=== PATIENT | male | born 1990 | race African-American/Black ===

== ENCOUNTER 2018-05-28 13:50 | Emergency (ER) | payer MEDICARE, MEDICAID ==
[~2018-05-28 13:50] MED LIST: NO HOME MEDS; PANT-47 PO
[2018-05-28 14:44] VITALS: BP 125/82
[2018-05-28] MEDS ORDERED: CHLO473M3 PO (15:02)
[2018-05-28] MEDS ORDERED: CLIN300C85 PO (15:02)
--- NOTE | 2018-05-28 15:26 | NUR ---
Patient seen and assessed by provider.
== END 2018-05-28 15:27 | disposition home or self-care (01) ==
LOC: ER 13:50
DX: K08.89 Other specified disorders of teeth and supporting structures (principal); Z90.49 Acquired absence of other specified parts of digestive tract; Z56.0 Unemployment, unspecified; Z88.0 Allergy status to penicillin; Z88.8 Allergy status to other drugs, medicaments and biological substances
CPT/HCPCS: 99283

== ENCOUNTER 2021-08-19 02:23 | Emergency (ER) | payer MEDICARE, MEDICAID ==
[~2021-08-19] VITALS: Ht 175.3 cm; Wt 100.2 kg
[~2021-08-19 02:23] MED LIST changes: +CHLO473M3 PO; +CLIN-97 PO
[2021-08-19] MEDS ORDERED: acetaminophen 325mg tablet PO ONE (02:40)
[2021-08-19] MEDS ORDERED: bacitracin 15gm ointment TP ONE (04:10)
[2021-08-19] MEDS ORDERED: TETanus/Pertussis (Acell)/Diphther VAC/PF (Tdap-Adult) 0.5ml syringe IMVAC ONE (04:10)
[2021-08-19 05:46] VITALS: BP 107/77
== END 2021-08-19 05:50 | disposition home or self-care (01) ==
LOC: ER 02:23
DX: S49.92XA Unspecified injury of left shoulder and upper arm, initial encounter (principal); S40.012A Contusion of left shoulder, initial encounter; S40.212A Abrasion of left shoulder, initial encounter; M25.512 Pain in left shoulder; F31.9 Bipolar disorder, unspecified; F20.9 Schizophrenia, unspecified; Z86.14 Personal history of Methicillin resistant Staphylococcus aureus infection; Z90.89 Acquired absence of other organs; Z88.0 Allergy status to penicillin; Z88.8 Allergy status to other drugs, medicaments and biological substances; Z20.3 Contact with and (suspected) exposure to rabies; Z79.2 Long term (current) use of antibiotics; Z79.899 Other long term (current) drug therapy; X58.XXXA Exposure to other specified factors, initial encounter; Y93.89 Activity, other specified; Y92.89 Other specified places as the place of occurrence of the external cause; Y99.8 Other external cause status
CPT/HCPCS: 29105; 36415; 73030; 86592; 87491; 90471; 90715; 99284

== ENCOUNTER 2022-04-18 05:29 | Emergency (ER) | payer MEDICAID, MEDICARE ==
[~2022-04-18] VITALS: Ht 175.3 cm; Wt 113.6 kg
[2022-04-18 05:48] VITALS: BP 117/82
== END 2022-04-18 11:55 | disposition left against medical advice (07) ==
LOC: ER 05:30
DX: R10.9 Unspecified abdominal pain (principal); Z53.21 Procedure and treatment not carried out due to patient leaving prior to being seen by health care provider

== ENCOUNTER 2023-12-05 00:23 | Emergency (ER) | payer MEDICAID, OTHER ==
[~2023-12-05] VITALS: Ht 175.3 cm; Wt 102.3 kg
[~2023-12-05 00:23] MED LIST changes: +CHLO473M13 PO; -CHLO473M3 PO
[2023-12-05 00:41] VITALS: BP 134/86; PULSE 65; RESP 14; TEMP 97.9; O2SAT 100
== END 2023-12-05 03:49 | disposition home or self-care (01) ==
LOC: ER 00:27
DX: M79.671 Pain in right foot (principal); M25.571 Pain in right ankle and joints of right foot; F31.9 Bipolar disorder, unspecified; F20.9 Schizophrenia, unspecified; Z88.0 Allergy status to penicillin; Z88.8 Allergy status to other drugs, medicaments and biological substances; Z79.2 Long term (current) use of antibiotics; Z79.899 Other long term (current) drug therapy; Z90.49 Acquired absence of other specified parts of digestive tract
CPT/HCPCS: 73610; 73630; 99284; A6449

== ENCOUNTER 2024-02-03 21:01 | Emergency (ER) | payer MEDICAID, OTHER ==
[~2024-02-03] VITALS: Ht 175.3 cm; Wt 101.4 kg
[2024-02-03 21:30] VITALS: TEMP 99.2
[2024-02-03 22:26] VITALS: BP 133/78; PULSE 88; O2SAT 98
[2024-02-03 22:38] VITALS: RESP 17
[2024-02-03] MEDS: ketorolac trometh 30MG/ML vial 30 MG/ML VIAL IM ONE (22:38)
== END 2024-02-03 22:44 | disposition home or self-care (01) ==
LOC: ER 21:02
DX: B34.9 Viral infection, unspecified (principal); F31.9 Bipolar disorder, unspecified; F20.9 Schizophrenia, unspecified; Z88.8 Allergy status to other drugs, medicaments and biological substances; Z88.0 Allergy status to penicillin; Z79.899 Other long term (current) drug therapy; Z79.2 Long term (current) use of antibiotics; Z90.49 Acquired absence of other specified parts of digestive tract; Z20.822 Contact with and (suspected) exposure to COVID-19
CPT/HCPCS: 36415; 87811; 96372; 99283; J1885

== ENCOUNTER 2024-04-30 05:30 | Emergency (ER) | payer MEDICAID ==
[~2024-04-30] VITALS: Ht 175.3 cm; Wt 96.7 kg
[2024-04-30 06:10] VITALS: TEMP 97.8
[2024-04-30 06:59] VITALS: BP 144/76; PULSE 74; RESP 16; O2SAT 97
== END 2024-04-30 07:02 | disposition home or self-care (01) ==
LOC: ER 05:30
DX: S93.492A Sprain of other ligament of left ankle, initial encounter (principal); M25.572 Pain in left ankle and joints of left foot; Z88.0 Allergy status to penicillin; Z88.8 Allergy status to other drugs, medicaments and biological substances; Z79.899 Other long term (current) drug therapy; F31.9 Bipolar disorder, unspecified; F20.9 Schizophrenia, unspecified; Z90.49 Acquired absence of other specified parts of digestive tract; X50.1XXA Overexertion from prolonged static or awkward postures, initial encounter; Y93.89 Activity, other specified; Y92.89 Other specified places as the place of occurrence of the external cause; Y99.0 Civilian activity done for income or pay
CPT/HCPCS: 73610; 99283

== ENCOUNTER 2024-11-21 14:08 | Emergency (ER) | payer MEDICAID ==
[~2024-11-21] VITALS: Ht 175.3 cm; Wt 100.7 kg
[2024-11-21 14:10] VITALS: BP 159/84; PULSE 78; RESP 18; TEMP 97.9; O2SAT 100
--- NOTE | 2024-11-21 16:18 | Physician Documentation ---
History of Present Illness ~ Chief Complaint: Bite-animal Stated Complaint: DOG BITE Time Seen by MD: 15:20 OK to notify your PCP?: Yes Primary Medical Doctor: NONE Source: patient Mode of Arrival: POV Exam Limitations: no limitations HPI This is a 34-year-old male who comes in for a dog bite to his left inner ankle. He states this happened the walking on the street just prior to arrival. It is so straight dog ran up and bit him on his left ankle. Bleeding stopped prior to arrival spontaneously. He is not complaining of any significant pain. Last Tdap is unknown. Tetanus within 5 years?: Yes Medication Reconciliation Allergies: Coded Allergies: Marijuana/Cannabinoid (Verified Allergy, Unknown, 11/21/24) Penicillins (Verified Allergy, Unknown, 11/21/24) methylphenidate HCl (Verified Allergy, Unknown, 11/21/24) quetiapine fumarate (Verified Allergy, Unknown, 11/21/24) oxcarbazepine (Unverified Adverse Reaction, Unknown, 11/21/24) DYSTONIC REACTION risperidone (Unverified Adverse Reaction, Unknown, 11/21/24) DYSTONIC REACTION Uncoded Allergies: ALL PSYCH MEDS (Allergy, Unknown, 06/24/14) Scheduled Chlorhexidine Gluconate (Periogard), 15 ML PO Q12H Clindamycin HCL* (Clindamycin HCL*), 1 CAP PO TID Doxycycline Hyclate (Doxycycline Hyclate), 1 CAP PO Q12H Pantoprazole Sodium (PROTONIX tablet), 40 MG PO DAILY Miscellaneous Medications Home Med List (No Home Medications), (Reported) Past Medical History Past Medical History: Bronchitis, MRSA Abscess, Bipolar, Schizophrenia Past Surgical History: appendectomy Alcohol Use: None Drug Use: none Lives with: Other Lives In: Home, Other Occupation: employed Physical Exam Vital Signs: Temperature: 97.9, Heart Rate: 78, Respiratory Rate: 18, BP: 159/84, Pulse Oximetry: 100, Weight: 100.650 Oxygen Flow Rate: 0 Pulse Oximetry Reflects: adequate oxygenation General Appearance: alert, WD/WN, no apparent distress Extremities To inspection of the left lower inner extremity the patient has a 2 cm gash ever in his horizontally. It is down to the cutaneous tissue. No active he morrhaging. No obvious underlying structural injury. No range of motion deficits of the left ankle and foot with dorsiflexion, plantar flexion, inversion, eversion. Left dorsalis pedis pulses 2+ and cap refill less than 2 seconds and brisk in the digits of the left foot. Procedures Laceration/Wound Repair Laceration/Wound Repair : Anesthesia: Lidocaine Prep: betadine, irrigated by physician Irrigated w/ Saline (mls): 500 Repaired: skin Wound Repaired With: sutures Suture Size/Type: 4-0, nylon Number of Superficial Sutures: 2 Dressing Applied: gauze, non-adherent Splint Applied?: No Tolerated Procedure Well?: yes, no complications Procedure Note The wound was anesthetized locally with 1% lidocaine without epinephrine and explored to the base in a bloodless field. There was no significant underlying structural injury. I then irrigated with a copious amount of a mixture of normal saline and Betadine the area of the night performed a very loose closure with the just 2 4-0 nylon simple interrupted sutures. I then covered with a nonadherent sterile gauze dressing. The patient tolerated the procedure well. Progress Results/Orders Reviewed/noted all lab results: Yes Results/Orders Completed Orders - NILSON BURROUGHS Lidocaine 1% W/Preservative (Lidocaine 1 (11/21/24 16:10) Tetanus/Pertuss/Diph Acell/Pf (Boostrix (11/21/24 16:10) Doxycycline 100mg Capsule (Vibramycin 10 (11/21/24 16:08) Medications Received in ER Medications (Trade) Dose Ordered Sig/Umair Route PRN Reason Start Time Stop Time Status Last Admin Dose Admin (Boostrix vaccine syringe) 0.5 ml ONCE ONCE IMVAC 11/21/24 16:10 11/21/24 16:11 DC 11/21/24 16:27 0.5 ML (VIBRAMYCIN 100mg capsule) 100 mg ONCE STAT PO 11/21/24 16:08 11/21/24 16:10 DC 11/21/24 16:26 100 MG Vital Signs 11/21/24 14:10 Temp 97.9 Pulse 78 Resp 18 B/P (MAP) 159/84 Pulse Ox 100 O2 Flow Rate 0 Medical Decision Making Findings The dog bite has a deep gash that has about 2 cm in length. It will require some closure soap the wound was anesthetized locally, irrigated with a copious amount of normal saline and Betadine and closed loosely with 4-0 nylon sutures. He was then wrapped and nonadherent sterile gauze dressing. The patient's Tdap was updated in his given a one doxycycline 100 mg p.o.. We will continue with the doxycycline twice a day for 10 days and instructed him to keep the current dressing clean dry and do not remove it for two days. After two days I suggest ed a wound check with the primary care physician. Elevate the leg frequently take ibuprofen or Tylenol for pain. Return to the ER sooner for increased redness, swelling, pain, purulent discharge or any concerns Additional Comment Dog bite left lower extremity. Departure Disposition: HOME / SELF CARE / HOMELESS Impression: Primary Impression: Dog bite of left ankle Condition: Stable Discharge Instructions: Animal Bite, Adult Additional Instructions: The current dressing clean dry and do not remove it. Elevate the ankle frequently to reduce pain and swelling. Take ibuprofen or Tylenol for pain. Keep the current dressing on for two days and get a wound check in two days. Suture removal in 10 days. Return sooner for any worsening or concerning symptoms Referrals: NO PRIMARY CARE PROVIDER (PCP) Prescriptions Doxycycline Hyclate (Doxycycline Hyclate) 100 Mg Capsule 1 CAP PO Q12H for 10 Days, #20 CAP Prov: NILSON BURROUGHS 11/21/24 Signature Scribe Signature: No scribe Attestation: The note accurately reflects work and decisions made by me.Nilson FRANCIS 11/21/24 16:52 NILSON BURROUGHS Nov 21, 2024 16:18
[2024-11-21] MEDS ORDERED: DOXY-1 PO (16:20)
[2024-11-21] MEDS: DOXYCYCLINE 100MG CAPSULE PO STA (16:26)
[2024-11-21] MEDS: TETanus/Pertussis (Acell)/Diphther VAC/PF (Tdap-Adult) 0.5ml syringe IMVAC ONE (16:27)
[2024-11-21] MEDS: LIDOcaine 1% (10mg/ml)w/preservative inj. 20ml MDV SQ ONE (17:06)
== END 2024-11-21 17:10 | disposition home or self-care (01) ==
LOC: ER 14:09
DX: S91.052A Open bite, left ankle, initial encounter (principal); F31.9 Bipolar disorder, unspecified; F20.9 Schizophrenia, unspecified; Z90.49 Acquired absence of other specified parts of digestive tract; Z88.0 Allergy status to penicillin; Z88.8 Allergy status to other drugs, medicaments and biological substances; Z79.899 Other long term (current) drug therapy; W54.0XXA Bitten by dog, initial encounter; Y93.89 Activity, other specified; Y92.89 Other specified places as the place of occurrence of the external cause; Y99.8 Other external cause status
CPT/HCPCS: 12001; 90471; 90715; 99283; J7030; A6449

== ENCOUNTER 2024-11-30 14:46 | Emergency (ER) | payer MEDICAID ==
[~2024-11-30] VITALS: Ht 175.3 cm; Wt 96.5 kg
[~2024-11-30 14:46] MED LIST changes: +DOXY-1 PO
[2024-11-30 14:51] VITALS: BP 117/78; PULSE 68; RESP 16; TEMP 96.5; O2SAT 96
--- NOTE | 2024-11-30 15:02 | Physician Documentation ---
History of Present Illness Stated Complaint: SUTURE REMOVAL Time Seen by MD: 14:52 Primary Medical Doctor: NONE HPI 34-year-old male that presents to the emergency department for removal of sutures to the left lower extremity. Patient reports no complications associated with the sutures. Medication Reconciliation Allergies: Coded Allergies: Marijuana/Cannabinoid (Verified Allergy, Unknown, 11/21/24) Penicillins (Verified Allergy, Unknown, 11/21/24) methylphenidate HCl (Verified Allergy, Unknown, 11/21/24) quetiapine fumarate (Verified Allergy, Unknown, 11/21/24) oxcarbazepine (Unverified Adverse Reaction, Unknown, 11/21/24) DYSTONIC REACTION risperidone (Unverified Adverse Reaction, Unknown, 11/21/24) DYSTONIC REACTION Uncoded Allergies: ALL PSYCH MEDS (Allergy, Unknown, 06/24/14) Scheduled Chlorhexidine Gluconate (Periogard), 15 ML PO Q12H Clindamycin HCL* (Clindamycin HCL*), 1 CAP PO TID Doxycycline Hyclate (Doxycycline Hyclate), 1 CAP PO Q12H Pantoprazole Sodium (PROTONIX tablet), 40 MG PO DAILY Miscellaneous Medications Home Med List (No Home Medications), (Reported) Past Medical History Past Medical History: Bronchitis, MRSA Abscess, Bipolar, Schizophrenia Past Surgical History: appendectomy Alcohol Use: None Drug Use: none Lives with: Other Lives In: Home, Other Occupation: employed Review of Systems All Other Systems at this time: Reviewed and Negative ROS As stated above in the HPI, otherwise all systems are reviewed and negative. Physical Exam Physical Exam VITALS: Reviewed and as above. GENERAL: Alert, no apparent distress. HEENT: Normocephalic, atraumatic, PERRL, EOMI, dry mucosa, no erythema RESPIRATORY: Lungs clear, normal breath sounds, no respiratory distress. CHEST: No accessory muscle use, no retractions CV: Regular rate, rhythm, no edema, no murmur, No: JVD GI: Soft, non-tender, bowels sounds present, no rebound, guarding, or rigidity BACK: No CVA tenderness, or swelling MUSCULOSKELETAL No deformities, no edema SKIN: Warm and dry, no rash, present in the lower left extremity, erythema noted appropriate suture line patient. NEURO: Oriented x4, No motor or sensory deficit PSYCH: Normal mood and affect, no agitation Procedures Procedures Sutural removal Medical Decision Making Findings Suture removal patient's. Wound reinforced with 3 Steri-Strips for precautionary measure. Patient discharged with specific instructions and strict strict restrictions for return precautions if needed. Patient up-to-date on his tetanus Departure Disposition: HOME / SELF CARE / HOMELESS Impression: Primary Impression: Visit for suture removal Condition: Stable Discharge Instructions: Suture Removal, Care After Referrals: NO PRIMARY CARE PROVIDER (PCP) Education Educated: Patient Educated regarding: treatment, need for follow up Signature Scribe Signature: . Attestation: Scribed for Emergency,Department by ONDINA Hager . 11/30/24 14:55 BAR WOMACK Nov 30, 2024 15:02
== END 2024-11-30 15:14 | disposition home or self-care (01) ==
LOC: ER 14:47
DX: S81.812D Laceration without foreign body, left lower leg, subsequent encounter (principal); F20.9 Schizophrenia, unspecified; F31.9 Bipolar disorder, unspecified; Z88.0 Allergy status to penicillin; Z90.49 Acquired absence of other specified parts of digestive tract; Z88.8 Allergy status to other drugs, medicaments and biological substances; Z79.899 Other long term (current) drug therapy; X58.XXXD Exposure to other specified factors, subsequent encounter
CPT/HCPCS: 99281

== ENCOUNTER 2025-05-05 20:34 | Emergency (ER) | payer MEDICAID ==
[~2025-05-05] VITALS: Ht 175.3 cm; Wt 100.0 kg
[~2025-05-05 20:34] MED LIST changes: +CLIN-224 PO; -CLIN-97 PO; -DOXY-1 PO
[2025-05-05 20:49] VITALS: BP 145/99; PULSE 68; RESP 15; TEMP 98.6; O2SAT 98
--- NOTE | 2025-05-05 21:10 | Physician Documentation ---
History of Present Illness ~ Chief Complaint: Wrist pain Stated Complaint: R WRIST PAIN Time Seen by MD: 21:03 Primary Medical Doctor: NONE Source: patient Mode of Arrival: POV Exam Limitations: no limitations HPI Patient presents secondary to right wrist pain worsening today. Works as a firearms sales associate. No trauma. Complains of pain on the right radial aspect of the was that starts at his proximal wrist and radiates down. States intermittent numbness that has been going on the for this. Now with worsening pain Tetanus within 5 years: Yes Medication Reconciliation Allergies: Coded Allergies: Marijuana/Cannabinoid (Verified Allergy, Unknown, 05/05/25) Penicillins (Verified Allergy, Unknown, 05/05/25) methylphenidate HCl (Verified Allergy, Unknown, 05/05/25) quetiapine fumarate (Verified Allergy, Unknown, 05/05/25) oxcarbazepine (Unverified Adverse Reaction, Unknown, 05/05/25) DYSTONIC REACTION risperidone (Unverified Adverse Reaction, Unknown, 05/05/25) DYSTONIC REACTION Uncoded Allergies: ALL PSYCH MEDS (Allergy, Unknown, 06/24/14) Scheduled Chlorhexidine Gluconate (Periogard), 15 ML PO Q12H Clindamycin HCL* (Clindamycin HCL*), 1 CAP PO TID Pantoprazole Sodium (PROTONIX tablet), 40 MG PO DAILY Miscellaneous Medications Home Med List (No Home Medications), (Reported) Past Medical History Past Medical History: Bronchitis, MRSA Abscess, Bipolar, Schizophrenia Past Surgical History: appendectomy Alcohol Use: None Drug Use: none Lives with: Other Lives In: Home, Other Occupation: employed Review of Systems All Other Systems at this time: Reviewed and Negative ROS Review of systems negative except documented in HPI. Physical Exam Vital Signs: RN Vital Signs have been reviewed: Yes, Temperature: 98.6, Source: Temporal, Heart Rate: 68, Respiratory Rate: 15, BP: 145/99, Pulse Oximetry: 98, Weight: 100.000 Pulse Oximetry Reflects: adequate oxygenation Physical Exam General: Awake, alert, oriented. No apparent distress Neck: Supple. Normal range of motion. No JVD Respiratory: Lungs are clear to auscultation bilaterally. No respiratory dis tress. Chest: Normal shape and size. No accessory muscle use. Cardiovascular: Regular rate and rhythm. S1-S2. No murmur, gallop, rub. Gastrointestinal: Abdomen is soft. Nontender to palpation. Bowel sounds present. Extremities: Radial pulses plus two. CMS is intact. No obvious deformity. Pain with palpation over the right radial aspect of the wrist. Neurologic: Alert and oriented x4. Nonfocal Psychiatric: Normal mood and affect. Skin: Normal color. Warm and dry. Progress Results/Orders Results/Orders Orders - АНДРЕЙ PURI NP Wrist, Complete (3vw Min) (05/05/25 ) Completed Orders - АНДРЕЙ PURI [employer] INS[employer]OR Wrist, Complete (3vw Min) (05/05/25 ) Vital Signs 05/05/25 20:49 Temp 98.6 Pulse 68 Resp 15 B/P (MAP) 145/99 Pulse Ox 98 EKG/XRAY/CT/US/VASC/MRI Bone/Soft Tissue X-Ray (Ext.) : Interpreted By: self, radiologist Views: 3 VIEW Indication: other Location: wrist Impression: normal Additional Comment [address] [address] DIAGNOSTIC RADIOLOGY Patient: CYNTHIA ONEILL Medical Record: [id number] [facility] 1990, Age: 34 Sex: Male Location: ER Patient Status: [facility] ER Service Date/Time: 05/05/25/ Ordering Physician: АНДРЕЙ PURI NP Exam: WRIST, COMPLETE (3VW MIN) CLINICAL INDICATION: pain TECHNIQUE: WRIST CMPLDI WRIST, COMPLETE (3VW MIN), right COMPARISON: DI FOOT, COMPLETE (3VW MIN) on DOS: 12/05/23 FINDINGS/IMPRESSION: : There is no evidence of acute fracture or dislocation. Soft tissues are unremarkable. Electronically Signed by:FERMIN CID MD Date & Time: 12/21/25 2240 Dictated by: FERMIN CID MD Dictation date and time: 05/05/252157 Primary Care Provider: NO PRIMARY CARE PROVIDER cc: АНДРЕЙ PURI NP ~ Medical Decision Making Additional information obtaine: N/A Findings Patient presents secondary to right wrist pain. He is working as a firearms sales associate and states increased pain with holding his trays. No injury. X-ray was completed with no fracture dislocation. He complains of intermittent numbness. Suspect underlying carpal tunnel syndrome. Encouraged to follow up with primary care provider. General Diff Dx:Considerations: Include: Other Shoulder Diff Dx:Consideration: Include: Other Elbow Diff Dx:Considerations: Include: Other Wrist Diff Dx:Considerations: Include: Abrasion, Arthritis, Carpal tunnel snydrome, Contusion, Dislocation, Fracture-radius, Neurovascular injury, Open fracture, Strain Hand Diff Dx:Considerations: Include: Other Finger Diff Dx:Considerations: Include: Other Departure Time of Disposition: 22:52 Disposition: 01 HOME / SELF CARE / HOMELESS Impression: Primary Impression: Wrist joint pain Qualified Codes: M25.531 - Pain in right wrist Discharge Instructions: Wrist Pain, Adult Additional Instructions: Your x-ray was normal. Recommend rest. Ice. Wrist brace may also help. You may take ibuprofen or tylenol for minor pain. Follow up with your primary care provider. Return for new or worsening condition Departure Forms: Excuse form Work or School Excused From: Work Excuse beginning now through the following date: May 05, 2025 May Return but still avoid physical Activity from now until: May 05, 2025 May Return to full physical activity as of: May 07, 2025 Referrals: NO PRIMARY CARE PROVIDER (PCP) Education Educated: Patient Educated regarding: diagnosis, treatment, need for follow up Signature Scribe Signature: No scribe Attestation: The note accurately reflects work and decisions made by me.Андрей Puri - DUSTIN 05/06/25 16:07 This note was created with the assistance of voice recognition software whereby errors in grammar, syntax, and/or spelling may have occurred despite active proofreading efforts by the author. Please do not hesitate to contact the provider for clarification or for questions regarding the content of this document. АНДРЕЙ PURI NP May 05, 2025 21:10
--- NOTE | 2025-05-05 22:43 | RADIOLOGY REPORT ---
CLINICAL INDICATION: pain TECHNIQUE: WRIST CMPLDI WRIST, COMPLETE (3VW MIN), right COMPARISON: DI FOOT, COMPLETE (3VW MIN) on DOS: 12/05/23 FINDINGS/IMPRESSION: : There is no evidence of acute fracture or dislocation. Soft tissues are unremarkable.
== END 2025-05-05 23:22 | disposition home or self-care (01) ==
LOC: ER 20:34
DX: M25.531 Pain in right wrist (principal); F31.9 Bipolar disorder, unspecified; F20.9 Schizophrenia, unspecified; Z86.14 Personal history of Methicillin resistant Staphylococcus aureus infection; Z90.49 Acquired absence of other specified parts of digestive tract; Z88.0 Allergy status to penicillin; Z88.8 Allergy status to other drugs, medicaments and biological substances; Z79.899 Other long term (current) drug therapy
CPT/HCPCS: 73110; 99283